=== PATIENT | female | born 1985 | race Two or more races ===

== ENCOUNTER 2017-12-25 12:07 | Emergency (ER) | payer SELFPAY ==
[~2017-12-25] VITALS: Ht 165.1 cm; Wt 63.0 kg
[2017-12-25 12:40] VITALS: BP 153/70
[2017-12-25 13:28] LABS: BILIRUBIN,URINE NEGATIVE (NEG); CLARITY,URINE CLEAR; COLOR,URINE YELLOW; NITRITE,URINE NEGATIVE (NEG); PH,URINE 5.5; PROTEIN,URINE NEGATIVE (NEG-TRACE); UROBILINOGEN,URINE 0.2 mg/dL (0.2 mg/dL)
[2017-12-25 13:38] LABS: BACTERIA,URINE 0 /HPF (0-FEW); RBC,URINE >40 /HPF (0-2); SQUAMOUS EPITHELIAL CELL,UR MOD /LPF; WBC,URINE 0 /HPF (0-4)
[2017-12-25] MEDS ORDERED: CYCL10TA2 PO (13:57)
[2017-12-25] MEDS ORDERED: IBUP-1060 PO (13:57)
--- NOTE | 2017-12-25 13:57 | PHYS DOC ---
Adult General Chief Complaint Chief Complaint: ABDOMINAL PAIN HPI HPI Patient is a 32 year old female with no significant medical history who presents today complaining of menstrual cramps that began today when her menstrual cycle began. Patient is also complaining of lower abdominal pain. Patient denies any chance she is . Denies any nausea, vomiting. She has not taken anything for her pain. Patient is [place] Citizen-speaking and interpretation is provided by Britany fluent in both languages Review of Systems Review of Systems Constitutional: Denies fever or chills [] Eyes: Denies change in visual acuity, redness, or eye pain [] HENT: Denies nasal congestion or sore throat [] Respiratory: Denies cough or shortness of breath [] Cardiovascular: No additional information not addressed in HPI [] GI: Reports abdominal cramping, denies nausea, vomiting, bloody stools or diarrhea [] : Denies dysuria or hematuria [] Musculoskeletal: Reports low back pain] Integument: Denies rash or skin lesions [] Neurologic: Denies headache, focal weakness or sensory changes [] All other systems were reviewed and found to be within normal limits, except as documented in this note. Allergies Allergies Allergies Coded Allergies Type Severity Reaction Last Updated Verified No Known Drug Allergies 12/25/17 No Physical Exam Physical Exam Constitutional: Well developed, well nourished, no acute distress, non-toxic appearance. [] HENT: Normocephalic, atraumatic, bilateral external ears normal, oropharynx moist, no oral exudates, nose normal. [] Eyes: PERRLA, EOMI, conjunctiva normal, no discharge. [] Neck: Normal range of motion, no tenderness, supple, no stridor. [] Cardiovascular:Heart rate regular rhythm, no murmur [] Lungs & Thorax: Bilateral breath sounds clear to auscultation [] Abdomen: Bowel sounds normal, soft, no tenderness, no masses, no pulsatile masses. [] Skin: Warm, dry, no erythema, no rash. [] Back: No tenderness, no CVA tenderness. [] Extremities: No tenderness, no cyanosis, no clubbing, ROM intact, no edema. [] Neurologic: Alert and oriented X 3, normal motor function, normal sensory function, no focal deficits noted. [] Psychologic: Affect normal, judgement normal, mood normal. [] Current Patient Data Lab Values Laboratory Tests Test 12/25/17 13:05 12/25/17 13:08 Urine Collection Type Unknown Urine Color Yellow Urine Clarity Clear Urine pH 5.5 Urine Specific [place] 1.025 Urine Protein Negative mg/dL (NEG-TRACE) Urine Glucose (UA) Negative mg/dL (NEG) Urine Ketones (Stick) Negative mg/dL (NEG) Urine Blood Large (NEG) Urine Nitrite Negative (NEG) Urine Bilirubin Negative (NEG) Urine Urobilinogen Dipstick 0.2 mg/dL (0.2 mg/dL) Urine Leukocyte Esterase Negative (NEG) Urine RBC >40 /HPF (0-2) Urine WBC 0 /HPF (0-4) Urine Squamous Epithelial Cells Mod /LPF Urine Bacteria 0 /HPF (0-FEW) Urine Mucus Marked /LPF POC Urine HCG, Qualitative Hcg negative (Negative) EKG EKG [] Radiology/Procedures Radiology/Procedures [] Course & Med Decision Making Course & Med Decision Making Pertinent Labs and Imaging studies reviewed. (See chart for details) This is a 32-year-old female who presents today complaining of menstrual cramps with back pain. Negative urine hCG, urine analysis is negative for infection. Patient was discharged with Ibuprofen and cyclobenzaprine, heating pad recommended to the low back and low abdomen. Follow-up with PCP in 1-2 weeks. Dragon Disclaimer Dragon Disclaimer This electronic medical record was generated, in whole or in part, using a voice recognition dictation system. Departure Departure Impression: Primary Impression: Menstrual cramps Additional Impression: Back pain Disposition: HOME, SELF-CARE Condition: STABLE Referrals: NO PCP (PCP) DEVON STEELE MD follow up in one week Patient Instructions: Dysautonomia Additional Instructions: You were evaluated in the emergency room for menstrual cramps and low back pain. Take the prescribed medications as needed for pain. Follow-up with your own MECHANICAL RELIABILITY ENGINEER or primary care doctor in 1-2 weeks. Come back to the ED at any point symptoms worsen. Scripts Cyclobenzaprine Hcl (CYCLOBENZAPRINE HCL) 10 Mg Tablet 1 TAB PO TID, #30 TAB Prov: MUTUNGA,KATRINA INVESTMENT CONSULTANT 12/25/17 Ibuprofen (IBUPROFEN) 800 Mg Tablet 800 MG PO PRN Q6HRS PRN for INFLAMMATION, #30 TAB Prov: MUTUNGA,KATRINA INVESTMENT CONSULTANT 12/25/17 Problem Qualifiers Additional Impression: Back pain Back pain location: low back pain Chronicity: acute Back pain laterality: bilateral Sciatica presence: without sciatica Qualified Codes: M54.5 - Low back pain KATRINA RANGEL APRN Dec 25, 2017 13:57
== END 2017-12-25 14:10 | disposition home or self-care (01) ==
LOC: ER 12:07
DX: N94.6 Dysmenorrhea, unspecified (principal); M54.5 Low back pain; R10.9 Unspecified abdominal pain
CPT/HCPCS: 81001; 81025; 99283

== ENCOUNTER 2019-09-13 00:44 | Inpatient (IN) | payer MEDICAID, SELFPAY ==
[~2019-09-13] VITALS: Ht 152.4 cm; Wt 74.8 kg
[~2019-09-13 00:44] MED LIST: CYCL10TA2 PO; IBUP-1060 PO
[2019-09-13] MEDS ORDERED: IV RINGERS,LACTATED 1000ML 1,000 ML IV SCH ×2 (01:00→01:06)
[2019-09-13] MEDS ORDERED: fentaNYL PF VIAL 100 MCG/2 ML VIAL IVP PRN (01:15)
[2019-09-13] MEDS ORDERED: TERBUTALINE 1 MG/ML VIAL. SQ PRN (01:15)
[2019-09-13] MEDS ORDERED: OXYTOCIN 30 UNIT/500 ML PREMIX 500 ML IV PRN ×3 (01:15→02:00)
[2019-09-13] MEDS ORDERED: ONDANSETRON PF 4 MG/2 ML VIAL. IVP PRN (01:15)
[2019-09-13] MEDS ORDERED: 0.9 % SODIUM CHLORIDE 10 ML DISP.SYRIN. IV PRN (01:15)
[2019-09-13] MEDS ORDERED: LIDOCAINE 1% PF 30 ML VIAL. INJ PRN (01:15)
[2019-09-13] MEDS ORDERED: BUTORPHANOL 2 MG/ML VIAL. IVP PRN (01:15)
[2019-09-13 01:36] LABS: BASO % 0 % (0-3); EOS # 0.1 x10^3/uL (0.0-0.7); EOS % 1 % (0-3); HEMATOCRIT 40.8 % (36.0-47.0); HEMOGLOBIN 13.9 g/dL (12.0-15.5); LYMPH # 2.4 x10^3/uL (1.0-4.8); LYMPH % 21 % (24-48); MEAN CORPUSCULAR HEMOGLOBIN 32 pg (25-35); MEAN CORPUSCULAR HGB CONC 34 g/dL (31-37); MEAN CORPUSCULAR VOLUME 95 fL (79-100); MONO # 0.9 x10^3/uL (0.0-1.1); MONO % 8 % (0-9); NEUT # 7.7 x10^3/uL (1.8-7.7); NEUT % 69 % (31-73); PLATELET COUNT 270 x10^3/uL (140-400); RED BLOOD COUNT 4.31 x10^6/uL (3.50-5.40); RED CELL DISTRIBUTION WIDTH 13.1 % (11.5-14.5); WHITE BLOOD COUNT 11.1 x10^3/uL (4.0-11.0)
[2019-09-13 01:58] LABS: BILIRUBIN,URINE NEGATIVE (NEG); CLARITY,URINE CLEAR; COLOR,URINE YELLOW; NITRITE,URINE NEGATIVE (NEG); PH,URINE 5.5 (<5.0-8.0); PROTEIN,URINE NEGATIVE (NEG-TRACE); UROBILINOGEN,URINE 0.2 mg/dL (0.2 mg/dL)
--- NOTE | 2019-09-13 01:59 | PDOC ---
GENERAL General: 36yrs old Lady EDC 09/18/19 admitted to hospital with Contractions and ervix dilated to9cm. ALLERGIES Allergies: Allergies Coded Allergies Type Severity Reaction Last Updated Verified No Known Drug Allergies 12/25/17 No LAB Lab: Laboratory Tests Test 09/13/19 01:15 White Blood Count 11.1 x10^3/uL (4.0-11.0) H Red Blood Count 4.31 x10^6/uL (3.50-5.40) Hemoglobin 13.9 g/dL (12.0-15.5) Hematocrit 40.8 % (36.0-47.0) Mean Corpuscular Volume 95 fL (79-100) Mean Corpuscular Hemoglobin 32 pg (25-35) Mean Corpuscular Hemoglobin Concent 34 g/dL (31-37) Red Cell Distribution Width 13.1 % (11.5-14.5) Platelet Count 270 x10^3/uL (140-400) Neutrophils (%) (Auto) 69 % (31-73) Lymphocytes (%) (Auto) 21 % (24-48) L Monocytes (%) (Auto) 8 % (0-9) Eosinophils (%) (Auto) 1 % (0-3) Basophils (%) (Auto) 0 % (0-3) Neutrophils # (Auto) 7.7 x10^3/uL (1.8-7.7) Lymphocytes # (Auto) 2.4 x10^3/uL (1.0-4.8) Monocytes # (Auto) 0.9 x10^3/uL (0.0-1.1) Eosinophils # (Auto) 0.1 x10^3/uL (0.0-0.7) Basophils # (Auto) 0.0 x10^3/uL (0.0-0.2) Laboratory Tests 09/13/19 01:15 ASSESSMENT & PLAN A&P Vital signs stable. Patient had Spontaneous Vaginal Delivery Alive Male Baby Delivered at 1.38hrs.with Apgars score 8/9/9. EBL 200cc. Justicifation of Admission Dx: Justifications for Admission: Justification of Admission Dx: Yes JOSIE MALDONADO MD Sep 13, 2019 01:59
[2019-09-13] MEDS ORDERED: TDaP (Adacel) per PROTOCOL. MC PRN (02:00)
[2019-09-13] MEDS ORDERED: oxyCODONE/APAP 5/325 1 TAB TABLET PO PRN (02:00)
[2019-09-13] MEDS ORDERED: HYDROCORTISONE 1% TOPICAL OINTMENT 30GM TUBE. TP PRN (02:00)
[2019-09-13] MEDS ORDERED: MAGNESIUM HYDROXIDE 2,400 MG/30 ML ORAL.SUSP. PO PRN (02:00)
[2019-09-13] MEDS ORDERED: ACETAMINOPHEN 325 MG TABLET. PO PRN (02:00)
[2019-09-13] MEDS ORDERED: ZOLPIDEM 5 MG TABLET. PO PRN (02:00)
[2019-09-13] MEDS ORDERED: MMR per PROTOCOL. MC PRN (02:00)
[2019-09-13] MEDS ORDERED: diphenhydrAMINE HCL 25 MG CAPSULE PO PRN (02:00)
[2019-09-13] MEDS ORDERED: BENZOCAINE 20% TOPICAL AEROSOL SPRAY 57GM CAN. TP PRN (02:00)
[2019-09-13] MEDS ORDERED: SIMETHICONE 80 MG TAB.CHEW PO PRN (02:00)
[2019-09-13] MEDS ORDERED: PHENYLEPH/MINERAL OIL/PETROLAT RECTAL OINTMENT TUBE. RC PRN (02:00)
[2019-09-13] MEDS ORDERED: MAG HYDROX/ALUMINUM HYD/SIMETH 30 ML ORAL.SUSP PO PRN (02:00)
[2019-09-13 02:05] LABS: BARBITURATES NEG (NEG); BENZODIAZEPINES NEG (NEG); CANNABINOIDS NEG (NEG); COCAINE NEG (NEG); METHADONE NEG (NEG); OPIATES NEG (NEG); PHENCYCLIDINE NEG (NEG)
[2019-09-13 02:07] LABS: SQUAMOUS EPITHELIAL CELL,UR FEW /LPF
[2019-09-13 02:08] LABS: BACTERIA,URINE 0 /HPF (0-FEW); WBC,URINE RARE /HPF (0-4)
[2019-09-13 02:09] LABS: AMPHETAMINE/METHAMPHETAMINE NEG (NEG)
--- NOTE | 2019-09-13 02:23 | HP ---
ADMIT DATE: 09/13/2019 CHIEF COMPLAINT AND HISTORY OF PRESENT ILLNESS: This patient is a 36-year-old [place] lady, who is a 3, para 2, EDC 09/18/2019, admitted to the hospital with a history of having contractions and also leaking amniotic fluid. She is a [facility] patient, came in labor to the hospital; and at the time of admission to the hospital, cervix was dilated to about 9 cm and no other complications. PHYSICAL EXAMINATION: VITAL SIGNS: Reveals the vital signs being stable. ABDOMEN: Term size uterus. Contractions palpated. PELVIC EXAM: Reveals cervix dilated to about 9 cm and leaking meconium-tinged amniotic fluid. HOSPITAL COURSE: She did have a spontaneous vaginal delivery quickly. A live male infant, 6 pounds 1 ounce, was delivered at 1:38 hours without any problems. DIAGNOSIS: 3, para 2, patient in active labor. PLAN: Spontaneous vaginal delivery. JOSIE MALDONADO MD DR: BLANCO/ryne JOB#: [id number] / [id number]
--- NOTE | 2019-09-13 02:32 | OP ---
DATE OF SURGERY: 09/13/2019 DELIVERY NOTE This patient is a 36-year-old [place] lady, who is 3, para 2, EDC 09/18/2019, came into the hospital with a history of having contractions and spontaneous rupture of membranes. At the time of admission to the hospital, she was in active labor, cervix dilated to about 9 cm, with spontaneous rupture of membranes. She did progress and had a spontaneous vaginal delivery. A live male weighing 6 pounds 1 ounce was delivered at 0138 hours on 09/13/2019 with the scores of 8, 9 and 9 without any problem. There was cord around the neck noticed at the time of the delivery, which was released before delivering the head, and cord was clamped and cut. Cord blood was taken. Placenta removed spontaneous. She did receive Pitocin after delivery of the placenta. There was a meconium-tinged fluid noted. Baby did have a spontaneous cry and no problems noted. Baby is referred to coating supervisor for further care and treatment. Visualization of the perineum revealed a superficial laceration of the vulva. This was sutured with 2-0 chromic catgut sutures. No hemorrhage noted. Mother tolerated the delivery well. No complications at this time. Estimated blood loss was 200 mL. JOSIE MALDONADO MD DR: BLANCO/ryne JOB#: [id number] / [id number]
[2019-09-13 02:59] VITALS: BP 118/66
[2019-09-13] MEDS: IBUPROFEN 400 MG TABLET. PO PRN ×2 (04:01→16:24)
[2019-09-13 05:39] VITALS: BP 106/52
[2019-09-13] MEDS ORDERED: IBUPROFEN 200 MG TABLET. PO SCH (06:00)
[2019-09-13 06:47] VITALS: BP 106/50
[2019-09-13 14:00] VITALS: BP 101/48
[2019-09-13] MEDS: DOCUSATE SODIUM 100 MG CAPSULE. PO PRN (16:23)
[2019-09-13 18:26] VITALS: BP 114/65
[2019-09-13 21:45] VITALS: BP 104/60
[2019-09-14] MEDS: DOCUSATE SODIUM 100 MG CAPSULE. PO PRN (03:47)
[2019-09-14] MEDS: IBUPROFEN 400 MG TABLET. PO PRN (03:48)
[2019-09-14 04:00] VITALS: BP 102/66
[2019-09-14] MEDS ORDERED: FERROUS SULFATE 325 MG TABLET. PO SCH (08:00)
--- NOTE | 2019-09-14 09:22 | PDOC ---
GENERAL General: Patie doing well. Breast feeding the Baby. VITAL SIGNS Vital Signs/I&O: Vital Signs Date Time Temp Pulse Resp B/P (MAP) Pulse Ox O2 Delivery O2 Flow Rate FiO2 09/14/19 04:00 97.7 84 16 102/66 (78) 98 Room Air 97.7 ALLERGIES Allergies: Allergies Coded Allergies Type Severity Reaction Last Updated Verified No Known Drug Allergies 12/25/17 No LAB Lab: Laboratory Tests Test 09/14/19 07:27 Hematocrit 36.5 % (36.0-47.0) Laboratory Tests 09/14/19 07:27 ASSESSMENT & PLAN A&P Vital signs stable. Lochia normal. Patient to go home today. Will see her in office in 6 weeks. Justicifation of Admission Dx: Justifications for Admission: Justification of Admission Dx: Yes JOSIE MALDONADO MD Sep 14, 2019 09:22
[2019-09-14 09:30] VITALS: BP 103/71
--- NOTE | 2019-09-14 13:45 | NUR ---
Discharge instructions given to patient via [employer] [facility]ung[employer] jump master #[id number]. Pt verbalized understanding of discharge instructions. Pt discharged home with infant and significant other.
[2019-09-14 14:00] VITALS: BP 116/77
== END 2019-09-14 14:10 | disposition home or self-care (01) | DRG 807 ==
LOC: 3 SO LND 00:44 → EDBD 00:44 → OBSVTOIN 00:44 → 3 NORTH 04:21
PROVIDERS: ADMIT Obstetrics & Gynecology; ATTEND Obstetrics & Gynecology
PROC: 10E0XZZ Delivery of Products of Conception, External Approach (ICD-10-PCS; principal; 2019-09-13)
PROC: 0UQMXZZ Repair Vulva, External Approach (ICD-10-PCS; 2019-09-13)
DX: O77.0 Labor and delivery complicated by meconium in amniotic fluid (principal); Z37.0 Single live birth; O70.0 First degree perineal laceration during delivery; Z20.828 Contact with and (suspected) exposure to other viral communicable diseases; Z3A.39 39 weeks gestation of pregnancy
CPT/HCPCS: 36415; 80307; 81001; 85014; 85025; 86592; 86850; 86900; 86901; J2590; J7120; G0378; U0003-CS